=== PATIENT | female | born 1985 ===

== ENCOUNTER 2021-07-23 18:57 | Emergency (ER) | payer SELFPAY ==
[2021-07-24 00:28] LABS: Basophils % (Auto) 0.5 % (0.0-1.8); Eosinophils # (Auto) 0.1 K/mm3 (0.0-0.4); Eosinophils % (Auto) 0.7 % (0.0-4.3); Hematocrit 37.7 % (30.3-42.9); Hemoglobin 12.4 gm/dl (10.1-14.3); Lymphocytes # (Auto) 2.6 K/mm3 (1.2-5.4); Lymphocytes % (Auto) 26.3 % (13.4-35.0); Mean Corpuscular HGB Conc 33 % (30-34); Mean Corpuscular Volume 91 fl (79-97); Monocytes # (Auto) 0.6 K/mm3 (0.0-0.8); Monocytes % (Auto) 6.4 % (0.0-7.3); Platelet Count 203 K/mm3 (140-440); Red Blood Count 4.14 M/mm3 (3.65-5.03)
[2021-07-24 00:48] LABS: Bacteria,Urine 1+ /HPF (Negative); Bilirubin,Urine NEG (Negative); Blood,Urine MOD (Negative); Color,Urine Yellow (Yellow); Mucus,Urine 2+ /HPF; Protein,Urine <15 mg/dL mg/dL (Negative); Urobilinogen,Urine < 2.0 mg/dL (<2.0)
--- NOTE | 2021-07-24 03:11 | Ultrasound Report ---
US OB <= 14 weeks fetus, US OB transvaginal INDICATION / CLINICAL INFORMATION: Vaginal bleeding pain beta hCG 84,945 COMPARISON: None available. TECHNIQUE: Using a transcutaneous and endovaginal probe, multiple grayscale, color Doppler, and spect ral Doppler images of the uterus and fetus were captured and stored. FINDINGS: Uterus measures 13.3 x 9 0.3 to 1.5 cm. A single intrauterine gestational sac with single fetus is pr esent, main sac size is 7.20 cm and mean crown-rump length of 6.26 cm. Correlates with an estimated g estational age of 13 weeks 4 days, EDC 01/25/2022. Clinical estimate of gestational age based on LMP of 05/01/2021 is 12 weeks 6 days with EDC of 022. The appearance of the yolk sac, pole is within normal limits. motion is present. A small subchorionic hemorrhage is demonstrated. heart rate 145 bpm. The ovaries are not identified secondary to bowel gas. No free fluid or adnexal masses are demonstrated. Urinary bladder not well visualized. IMPRESSION: 1. Single living intrauterine gestation with estimated composite gestational age of 13 weeks 4 days a nd EDC of 01/25/2022. 2. Small subchorionic hemorrhage. Signer Name: Jason Carr II, MD Signed: 07/24/2021 3:07 AM Workstation Name: [id number]
--- NOTE | 2021-07-24 03:56 | Emergency Department Report ---
ED Female HPI - General Chief complaint: Vaginal Bleeding Stated complaint: BLEEDING Time Seen by Provider: 07/24/21 00:44 Source: patient Mode of arrival: Ambulatory Limitations: No Limitations - History of Present Illness Initial comments: 35-year-old female admitted from complaining developing pelvic pain and cramping starting this morning of unknown etiology. Pain is crampy aching in nature to the left side of the suprapubic area. She has been seen by a clinic and [facility] in [place] but not yet had ultrasound. Reports no fever, chills, sweats but no nausea or vomiting. States feels her bleeding is moderate to heavy but she is unsure of the amount of past that she is going to prior but has seen a few blood clots. No presyncope MD Complaint: vaginal bleeding -: Gradual Location: suprapubic Radiation: non-radiating Quality: cramping Consistency: constant Improves with: none Worsens with: none - Related Data Allergies Allergy/AdvReac Type Severity Reaction Status Date / Time No Known Allergies Allergy Unverified 07/23/21 23:44 ED Review of Systems ROS: Stated complaint: BLEEDING Other details as noted in HPI Comment: All other systems reviewed and negative ED Past Medical Hx - Past Medical History Previous Medical History?: No - Surgical History Past Surgical History?: No ED Physical Exam - General Limitations: No Limitations General appearance: alert, in no apparent distress - Head Head exam: Present: atraumatic, normocephalic - Eye Eye exam: Present: normal appearance, PERRL, EOMI Pupils: Present: normal accommodation - ENT ENT exam: Present: normal exam, normal orophraynx, mucous membranes moist, TM's normal bilaterally - Neck Neck exam: Present: normal inspection, full ROM - Respiratory Respiratory exam: Present: normal lung sounds bilaterally. Absent: respiratory distress, wheezes, rales - Cardiovascular Cardiovascular Exam: Present: regular rate, normal rhythm. Absent: systolic murmur, diastolic murmur, rubs, gallop - GI/Abdominal GI/Abdominal exam: Present: soft, tenderness (Left lower quadrant region suprapubic), normal bowel sounds - Extremities Exam Extremities exam: Present: normal inspection, normal capillary refill - Back Exam Back exam: Present: normal inspection. Absent: CVA tenderness (R), CVA tenderness (L) - Neurological Exam Neurological exam: Present: alert, oriented X3 - Psychiatric Psychiatric exam: Present: normal affect, normal mood - Skin Skin exam: Present: warm, dry, intact, normal color. Absent: rash ED Course Vital Signs 07/23/21 23:44 Temperature 98.2 F Pulse Rate 75 Respiratory 18 Rate Blood Pressure 128/68 O2 Sat by Pulse 99 Oximetry ED Medical Decision Making - Lab Data Result diagrams: 07/24/21 00:05 - Radiology Data Radiology results: report reviewed [facility] [address] [place] [address] Ultrasound Report Signed Patient: GRACIELA BAZAN MR #: [id number] : 1985 Acct:[id number] Age/Sex: 35 / F ADM Date: 07/23/21 Loc: ED Attending Dr: Ordering Physician: PINA SOUZA Date of Service: 07/24/21 Procedure(s): US OB transvaginal Accession Number(s): [id number] cc: PINA SOUZA US OB <= 14 weeks fetus, US OB transvaginal INDICATION / CLINICAL INFORMATION: Vaginal bleeding pain beta hCG 84,945 COMPARISON: None available. TECHNIQUE: Using a transcutaneous and endovaginal probe, multiple grayscale, color Doppler, and spectral Doppler images of the uterus and fetus were captured and stored. FINDINGS: Uterus measures 13.3 x 9 0.3 to 1.5 cm. A single intrauterine gestational sac with single fetus is present, main sac size is 7.20 cm and mean crown-rump length of 6.26 cm. Correlates with an estimated gestational age of 13 weeks 4 days, EDC 01/25/2022. Clinical estimate of gestational age based on LMP of 05/01/2021 is 12 weeks 6 days with EDC of 02/05/2022. The appearance of the yolk sac, pole is within normal limits. motion is present. A small subchorionic hemorrhage is demonstrated. heart rate 145 bpm. The ovaries are not identified secondary to bowel gas. No free fluid or adnexal masses are demonstrated. Urinary bladder not well visualized. IMPRESSION: 1. Single living intrauterine gestation with estimated composite gestational a ge of 13 weeks 4 days and EDC of 01/25/2022. 2. Small subchorionic hemorrhage. Signer Name: Sanam Carr II, MD Signed: 07/24/2021 3:07 AM Workstation Name: [id number] Transcribed By: ALEX Dictated By: SANAM CARR II, MD Electronically Authenticated By: SANAM CARR II, MD Signed Date/Time: 07/24/21306 DD/ 1 TD/TT: Print Cancel - Medical Decision Making This patient presents with vaginal bleeding in the first trimester, differential diagnosis includes ectopic , IUP, month threatened/inev itable , along with a completed . Patient is HDS and without a history of coagulopathy or infectious symptoms. The ultrasound does reveal an IUP at weeks with an elevated hCG quant Based on exam history and ED work-up patient presentation is not consistent with an ectopic , life-threatening coagulopathy, trauma, serious bacterial infection, central process or other emergency Critical care attestation.: If time is entered above; I have spent that time in minutes in the direct care of this critically ill patient, excluding procedure time. ED Disposition Clinical Impression: 13 weeks gestation of , Threatened affecting intrauterine Disposition: 01 HOME / SELF CARE / HOMELESS Is pt being admited?: No Does the pt Need Aspirin: No Condition: Stable Instructions: Threatened Miscarriage, Activity Restriction During , Vaginal Bleeding During , Second Trimester, Vaginal Bleeding During , First Trimester, [id number] Referrals: [facility] [Provider Group] - 3-5 Days
[2021-07-24 04:14] VITALS: BP 126/63
== END 2021-07-24 05:59 | disposition home or self-care (01) ==
LOC: ED 18:57
DX: O20.0 Threatened abortion (principal); Z3A.13 13 weeks gestation of pregnancy
CPT/HCPCS: 36415; 76801; 76817; 81001; 84702; 84703; 85025; 86900; 86901; 99284